=== PATIENT | female | born 1955 | race Caucasian/White ===

== ENCOUNTER 2016-09-28 15:32 | Emergency (ER) | payer BC ==
[~2016-09-28] VITALS: Ht 154.9 cm; Wt 127.3 kg
[2016-09-28 15:35] VITALS: Ht 154.9 cm; Wt 127.3 kg
[2016-09-28] MEDS ORDERED: SODIUM CHLORIDE 0.9% 1000ML 1,000 ML IV STA (16:01)
[2016-09-28] MEDS ORDERED: ALBUT/IPRATROP 3MG/0.5MG NEB 3 ML VIAL INH STA (16:01)
[2016-09-28] MEDS ORDERED: KETOROLAC TROMETHAMINE 30 MG/ML VIAL IV STA (16:01)
[2016-09-28] MEDS ORDERED: HYDROCODONE/HOMATROPINE SYRUP 5MG/1.5MG 5ML UDP PO STA (16:01)
[2016-09-28] MEDS ORDERED: OLME1TAB11 PO (16:19)
[2016-09-28 16:21] LABS: BASO % 0.2 %; BASO ABS # 0.01 K/uL (0-0.2); COMPLETE YES; EOS % 0.5 %; HEMATOCRIT 41.8 % (37-47); IG% 0.2 %; LYMPH % 8.7 %; LYMPH ABS # 0.53 K/uL (1.2-3.4); MEAN CELL VOLUME 93.3 fL (80-100); MEAN CORPUSCULAR HEMOGLOBIN 31.7 pg (25-34); MONO % 16.1 %; NEUT % 74.3 %; PLATELET COUNT 254 K/uL (130-400); RED BLOOD COUNT 4.48 M/uL (4.2-5.4); WHITE BLOOD COUNT 6.08 K/uL (4.8-10.8)
[2016-09-28 16:33] LABS: URINE APPEARANCE CLEAR (CLEAR); URINE BILIRUBIN NEG (NEG); URINE COLOR YELLOW; URINE NITRITE NEG (NEG); URINE SPECIFIC GRAVITY 1.008 (1.000-1.030); UROBILINOGEN NEG (NEG)
--- NOTE | 2016-09-28 16:37 | DIAGNOSTIC IMAGING REPORT ---
CHEST ONE VIEW PORTABLE CLINICAL HISTORY: Atypical chest pain COMPARISON STUDY: No previous studies for comparison. FINDINGS: The heart is mildly enlarged. There is aortic tortuosity/ectasia. There is equivocal mild central pulmonary vascular congestion. There is no lobar consolidation. There are no pleural effusions.[ IMPRESSION: Cardiomegaly with equivocal mild central pulmonary vascular congestion. No evidence of focal pulmonary consolidation Electronically signed by: Flynn Packer M.D. 09/28/2016 4:36 PM Dictated Date/Time: 09/28/2016 4:35 PM
[2016-09-28 16:42] LABS: BUN/CREATININE RATIO 10.4 (10-20); CALCIUM 8.6 mg/dl (8.5-10.1); CREATININE 0.93 mg/dl (0.60-1.20); POTASSIUM 3.5 mmol/L (3.5-5.1)
[2016-09-28 16:53] LABS: MANUAL MICROSCOPIC REQUIRED? NO; REVIEW REQ? NO
[2016-09-28 18:22] LABS: INFLUENZA A PCR Neg for Influ A (NEG); INFLUENZA B PCR POS for Influ B (NEG)
[2016-09-28] MEDS ORDERED: DiphenhydrAMINE HCL 50 MG/ML VIAL IV STA (18:40)
[2016-09-28] MEDS ORDERED: MoRPHine SULFATE 4 MG/ML 1 ML CARP\\VIAL IV STA (18:40)
[2016-09-28] MEDS ORDERED: OSEL75CA12 PO (18:54)
[2016-09-28] MEDS ORDERED: HYDR5SYP11 PO (18:54)
[2016-09-28] MEDS ORDERED: VNTHFA/IN INH (18:56)
[2016-09-28] MEDS ORDERED: ALBUTEROL HFA 8 GM INHALER INH ONE (20:07)
[2016-09-28] MEDS ORDERED: HYCODAN 60ML BOTTLE HOMEPACK ONE (20:07)
[2016-09-28] MEDS ORDERED: OSELTAMIVIR PHOSPHATE 75 MG CAP PO ONE (20:08)
[2016-09-28 20:29] VITALS: BP 127/80; PULSE 75; TEMP 37.9; O2SAT 96
--- NOTE | 2016-09-29 00:10 | EMERGENCY ROOM VISIT NOTE ---
ED Visit Note First contact with patient: 15:50 Chief Complaint: Cough, headache, body aches and chest pain. History of Present Illness: Ms. Murrell is a 61-year-old white female who ambulates into the ED with complaints of cough, headache and chest pain. Patient reports over the last 2 days she has been having a worsening nonproductive cough that was initially mild and has gradually increased in intensity. Then last evening she reports she developed a headache, chest pain and body aches that have been continuous and seems to be worsening. Currently she describes her chest pain as an achy sensation throughout the anterior chest. She rates this discomfort 8/10. Pain is nonradiating. Her pain worsens with cough. She has not identified any alleviating factors related to the pain. She has not taken any medications for pain prior to arrival at the hospital. Additionally she complains of a frontal and bilateral temporal headache. She describes this as a throbbing sensation. She rates this discomfort 8/10. She has not identified any aggravating or alleviating factors related to the pain. She has not taken any medication for pain prior to arrival at the hospital. Additionally she complains of neck pain over the bilateral lateral aspect of the neck by at the T7 level. She describes this as a deep achy sensation. She rates this discomfort 8/10. Her pain is nonradiating. Her pain worsens with palpation of the trapezius muscle. She has not identified any alleviating factors related to the pain. She has not taken any medications for pain. Additionally she goes on to report that she is having pains throughout her extremities including her joints. She does not describe these but does report severe. Associated with her symptoms she reports she has been having chills, dizziness, lightheadedness. She denies jevon fevers, sweats, skin eruptions, skin color changes, recent head trauma, visual changes, changes, difficulty speaking, difficulty swallowing , difficulty ambulating/coordinating body movements, neck stiffness, drooling, painful talking, wheezing, shortness of breath, palpitations, orthopnea, dependent edema, previous clots, claudication, cramping, recent surgery/ inactivity/extended travel, abdominal pain, diarrhea, constipation, rectal bleeding, black/tarry stools, urinary symptoms, hematuria, extremity weakness/ numbness/tingling. Review of Systems: As noted above in history of present illness. All body systems were reviewed and found to be negative as noted above. Past Medical History: Hypertension. Current Medications: Benicar. Allergies to Medications: Patient denies. Social History: Patient is currently employed; she feels safe in her home environment; she denies tobacco use. Physical Examination: Vital Signs: Date Time Temp Pulse Resp B/P Pulse Ox O2 Delivery O2 Flow Rate FiO2 09/28/16 20:29 37.9 75 18 127/80 96 09/28/16 17:40 86 18 134/69 94 Room Air 09/28/16 15:35 37.6 80 18 169/100 98 Room Air GENERAL: 61-year-old female in moderate distress due to pain and symptoms, nontoxic-appearing, febrile and hemodynamically stable. NEUROLOGICAL: Awake, alert and oriented to person, place and time. Answering questions appropriately and following commands. Normal gait. Good hand eye coordination. No focal motor or sensory deficits. SKIN: Warm, dry and pink. No soft tissue eruptions or trauma noted. HEENT: Atraumatic and normocephalic. PERRLA. Sclera white and conjunctiva pink. Tympanic membranes are nonerythematous or edematous. Normal light reflex. No drainage from naris, little congestion. Oral cavity moist and pink. Airway is patent. Uvula is midline and no abscesses are seen. Pharynx is nonerythematous or edematous. Speech normal. No lymphadenopathy. Trachea midline. No jugular venous distention. BACK: No tenderness over the bony cervical and thoracic spine. Moderate tenderness through the upper bilateral trapezius muscles without spasm. No nuchal rigidity. Full range of motion of the cervical spine. No CVA tenderness. THORAX: Lungs sounds are clear to auscultation but decreased bilaterally in all rivera. Equal bilaterally with symmetrical chest wall. No wheezing, rales or rhonchi. No crepitus, tenderness, subcutaneous air or deformities noted. HEART: Regular rate and rhythm. No gallops, rubs or murmurs are appreciated. ABDOMEN: Obese, soft and nontender. Positive bowel sounds in all quadrants. No guarding, rigidity or organomegaly. EXTREMITIES: Moves all extremities well on command and with purpose. All distal neurovascular statuses are intact and equal bilaterally. No calf tenderness or cords. ED Course: Patient is assessed as noted above. Laboratory Testing: Test 09/28/16 16:10 09/28/16 16:16 09/28/16 16:45 Range/Units White Blood Count 6.08 4.8-10.8 K/uL Red Blood Count 4.48 4.2-5.4 M/uL Hemoglobin 14.2 12.0-16.0 g/dL Hematocrit 41.8 37-47 % Mean Corpuscular Volume 93.3 80-100 fL Mean Corpuscular Hemoglobin 31.7 25-34 pg Mean Corpuscular Hemoglobin Concent 34.0 32-36 g/dl Platelet Count 254 130-400 K/uL Mean Platelet Volume 11.0 7.4-10.4 fL Neutrophils (%) (Auto) 74.3 % Lymphocytes (%) (Auto) 8.7 % Monocytes (%) (Auto) 16.1 % Eosinophils (%) (Auto) 0.5 % Basophils (%) (Auto) 0.2 % Neutrophils # (Auto) 4.52 1.4-6.5 K/uL Lymphocytes # (Auto) 0.53 1.2-3.4 K/uL Monocytes # (Auto) 0.98 0.11-0.59 K/uL Eosinophils # (Auto) 0.03 0-0.5 K/uL Basophils # (Auto) 0.01 0-0.2 K/uL RDW Standard Deviation 48.1 36.4-46.3 fL RDW Coefficient of Variation 14.2 11.5-14.5 % Immature Granulocyte % (Auto) 0.2 % Immature Granulocyte # (Auto) 0.01 0.00-0.02 K/uL Urine Color YELLOW Urine Appearance CLEAR CLEAR Urine pH 5.0 4.5-7.5 Urine Specific [place] 1.008 1.000-1.030 Urine Protein NEG NEG Urine Glucose (UA) NEG NEG Urine Ketones NEG NEG Urine Occult Blood TRACE NEG Urine Nitrite NEG NEG Urine Bilirubin NEG NEG Urine Urobilinogen NEG NEG Urine Leukocyte Esterase TRACE NEG Urine WBC (Auto) 1-5 0-5 /hpf Urine RBC (Auto) 0-4 0-4 /hpf Urine Hyaline Casts (Auto) 0 0-5 /lpf Urine Epithelial Cells (Auto) 10-20 0-5 /lpf Urine Bacteria (Auto) NEG NEG Sodium Level 140 136-145 mmol/L Potassium Level 3.5 3.5-5.1 mmol/L Chloride Level 105 98-107 mmol/L Carbon Dioxide Level 26 21-32 mmol/L Anion Gap 9.0 3-11 mmol/L Blood Urea Nitrogen 10 7-18 mg/dl Creatinine 0.93 0.60-1.20 mg/dl Est Creatinine Clear Calc Drug Dose 79.8 ml/min Estimated GFR () 76.9 Estimated GFR (Non- 66.3 BUN/Creatinine Ratio 10.4 10-20 Random Glucose 98 70-99 mg/dl Calcium Level 8.6 8.5-10.1 mg/dl Total Bilirubin 0.5 0.2-1 mg/dl Direct Bilirubin 0.1 0-0.2 mg/dl Aspartate Amino Transf (AST/SGOT) 23 15-37 U/L Alanine Aminotransferase (ALT/SGPT) 30 12-78 U/L Alkaline Phosphatase 89 45-117 U/L Total Protein 8.2 6.4-8.2 gm/dl Albumin 4.0 3.4-5.0 gm/dl Lipase 135 73-393 U/L Bedside Troponin I 0.000 0-0.045 ng/ml Influenza Type A (RT-PCR) Neg for Influ A NEG Influenza Type B (RT-PCR) POS for Influ B NEG Chest X-Rays: Were reviewed by myself and read by the radiologist showing mildly enlarged heart, aortic tortuosity/ectasia, equivocal pulmonary vascular congestion, no acute infiltrates or effusions. No pneumothorax. EKG: Was read by myself and reviewed with Dr. George; shows normal sinus rhythm with ventricular rate of 78 bpm. Left and checked her hypertrophy. No acute ischemic changes. No previous to compare. Patient was hydrated with normal saline and she received an albuterol/Atrovent nebulizer breathing treatment, 10 mL of Hycodan cough syrup by mouth and 30 mg of Toradol IV initially for her symptoms. Reevaluation of her lungs she showed improved air movement in all rivera and did not have any wheezing, rales or rhonchi. During her stay patient reports that she was feeling slightly better but did report that her headache was getting worse. She was given 4 mg of morphine IV and 25 mg of Benadryl IV. After she was found to be influenza B-positive she was given 75 mg of Tamiflu by mouth. Patient was reassessed multiple times during her stay in the emergency department. Patient's case was reviewed with Dr. George; we agreed on diagnostic approach, treatment, disposition and plan. Patient was educated about emily's findings and instructed on her treatment plan; she verbalizes understanding and agreement with this plan. Clinical Impression: Influenza B. Decision-Making: Initially my differential diagnosis I considered pneumonia, acute coronary syndrome, pneumothorax, pulmonary emboli, meningitis, influenza and other causes. Disposition: Patient discharged home in stable condition accompanied by her daughter; prior to departure she was reassessed and subjectively reported she was feeling better. She reported a decrease in her cough as well as her generalized pain including her headache, chest pain and body aches. Plan: Patient was encouraged to alternate ibuprofen and acetaminophen every 3 hours as needed for pain/bodyaches/fevers. Patient was prescribed Tamiflu 75 mg 2 times a day for 5 days. Patient was prescribed an albuterol inhaler; she was encouraged use 2 puffs with spacer every 6 hours for the next 5 days and as needed for severe cough, shortness of breath/wheezing. Patient was prescribed Hycodan cough syrup and encouraged to use 5 mg every 6 hours as needed for cough; she was given appropriate narcotic questions. Patient was encouraged to wear a mask at home and around her symptom resolution of symptoms. Patient was encouraged not to return to work until resolution of symptoms for 24 hours. Patient was encouraged to follow-up with PCP for recheck. Patient was encouraged return ED for worsening fevers, worsening pain or shortness of breath/wheezing or any new/concerning symptoms.
== END 2016-09-28 20:29 | disposition home or self-care (01) ==
LOC: C.EDB 15:35 → C.EDC 20:29
DX: J11.1 Influenza due to unidentified influenza virus with other respiratory manifestations (principal); I10 Essential (primary) hypertension; Z79.899 Other long term (current) drug therapy